=== PATIENT | female | born 1970 | race Caucasian/White ===

== ENCOUNTER 2024-02-11 07:56 | Day surgery (SDC) | payer OTHER ==
[~2024-02-11] VITALS: Ht 167.6 cm; Wt 80.3 kg
[2024-02-11] MEDS ORDERED: ONDANSETRON HCL 4 MG/2 ML VIAL ONE (08:59)
[2024-02-11] MEDS ORDERED: DIPHENHYDRAMINE INJ 50 MG/ML VIAL ONE (08:59)
[2024-02-11] MEDS ORDERED: LIDOCAINE MPF 2% 20 MG/1 ML, 5 ML VIAL INH ONE (09:00)
[2024-02-11 09:07] VITALS: O2SAT 98
[2024-02-11] MEDS: fentaNYL CITRATE/PF 100 MCG/2 ML AMP ONE (10:22)
[2024-02-11] MEDS: MIDAZOLAM HCL 5 MG/5 ML VIAL ONE (10:23)
[2024-02-11 14:56] VITALS: BP_SYST 119; PULSE 79; RESP 17
== END 2024-02-11 11:20 | disposition home or self-care (01) ==
LOC: SDS 07:56 → SMU 07:56 → SDS 11:20
PROVIDERS: ATTEND Internal Medicine
DX: M47.816 Spondylosis without myelopathy or radiculopathy, lumbar region (principal); M79.10 Myalgia, unspecified site; E78.5 Hyperlipidemia, unspecified; G43.909 Migraine, unspecified, not intractable, without status migrainosus; Z88.0 Allergy status to penicillin; Z98.890 Other specified postprocedural states; Z79.899 Other long term (current) drug therapy
CPT/HCPCS: 64493; 64494; J2250; J3010; Q9967; J1010; 76000; J1030; J1200; J2405